=== PATIENT | female | born 1980 ===

== ENCOUNTER 2016-08-08 12:53 | Inpatient (IN) | payer OTHER ==
[2016-08-08 12:54] VITALS: BMI 20.9
[2016-08-08] MEDS ORDERED: Sodium Chloride 0.9% 1,000 ML IV STA ×2 (13:46→18:19)
[2016-08-08 14:15] LABS: MEAN CELL VOLUME 79.3 fl (81.0-99.0); MEAN CORPUSCULAR HEMOGLOBIN 24.2 pg (27.0-31.0); MEAN CORPUSCULAR HGB CONC 30.6 g/dL (33.0-37.0); RED CELL DISTRIBUTION WIDTH 19.3 % (11.5-14.5); WHITE BLOOD COUNT 23.3 K/uL (4.8-10.8)
[2016-08-08 14:25] LABS: ALB/GLOB RATIO 1.4 (1.0-2.1); ALKALINE PHOSPHATASE 48 U/L (38-126); ALT/SGPT 432 U/L (9-52); BILIRUBIN,TOTAL 0.7 mg/dl (0.2-1.3); BLOOD UREA NITROGEN 17 mg/dl (7-17); CALCIUM 9.2 mg/dL (8.4-10.2); CARBON DIOXIDE 24 mmol/L (22-30); CHLORIDE 101 mmol/L (98-107); GFR AFRICAN-AMERICAN > 60; GLUCOSE,RANDOM 100 mg/dL (65-105); POTASSIUM 4.1 MMOL/L (3.6-5.0); SODIUM 138 mmol/l (132-148)
[2016-08-08 14:48] LABS: AST/SGOT 1646 U/L (14-36)
[2016-08-08] MEDS ORDERED: Iohexol 240 (50 ml) PO ONE (14:59)
--- NOTE | 2016-08-08 15:02 | ED PDOC ---
HPI: General Adult Time Seen by Provider: 08/08/16 13:32 Chief Complaint (Nursing): Substance Abuse Chief Complaint (Provider): involuntary movement after taking 'trenton' History Per: Patient History/Exam Limitations: no limitations Onset/Duration Of Symptoms: Hrs (since noon yesterday) Have you had recent travel within the past 21 days to any of the following countries: [place], [place], [place] or [place]?: No Current Symptoms Are (Timing): Still Present Additional Complaint(s): Pt states she took trenton last approx 24 hours ago and has been experiencing involuntary body movement for the last 18 hours. PT states she has taken trenton in the past but has never felt this way. Pt denies anything else new. Denies abdominal pain, fever, chills. PT reports sore throat. Past Medical History Reviewed: Historical Data, Nursing Documentation, Vital Signs Vital Signs: Last Vital Signs Temp 99.9 F H 08/08/16 16:25 Pulse 113 H 08/08/16 16:36 Resp 16 08/08/16 16:36 BP 125/57 L 08/08/16 16:36 Pulse Ox 98 08/08/16 16:36 - Medical History PMH: No Chronic Diseases - Surgical History Surgical History: No Surg Hx - Family History Family History: States: Unknown Family Hx - Immunization History Hx Tetanus Toxoid Vaccination: No Hx Influenza Vaccination: No Hx Pneumococcal Vaccination: No - Home Medications Home Medications: Ambulatory Orders Medication Instructions Recorded No Known Home Med [No Known Home 10/28/14 Med] - Allergies Allergies/Adverse Reactions: Allergies Allergy/AdvReac Type Severity Reaction Status Date / Time shellfish derived Allergy RASH Verified 08/08/16 15:34 Physical Exam - Reviewed Nursing Documentation Reviewed: Yes Vital Signs Reviewed: Yes - Physical Exam Appears: Positive for: Well, Non-toxic, No Acute Distress Head Exam: Positive for: ATRAUMATIC, NORMAL INSPECTION, NORMOCEPHALIC Skin: Positive for: Normal Color, Warm, DRY Eye Exam: Positive for: EOMI, Normal appearance, PERRL ENT: Positive for: Normal ENT Inspection Neck: Positive for: Normal, Painless ROM Cardiovascular/Chest: Positive for: Regular Rate, Rhythm Respiratory: Positive for: CNT, Normal Breath Sounds Gastrointestinal/Abdominal: Positive for: Normal Exam, Bowel Sounds, Soft Back: Positive for: Normal Inspection Extremity: Positive for: Normal ROM Neurologic/Psych: Positive for: Alert, rn liaison II-XII, Oriented, Other ((+) involuntary spastic body movement ). Negative for: Gait (Unsteady) - Laboratory Results Result Diagrams: 08/08/16 14:04 08/08/16 14:04 - ECG O2 Sat by Pulse Oximetry: 100 Medical Decision Making Medical Decision Making: Pt remains tachycardic after ativan 1mg IV and IV fluids. Additional 1mg IV ordered and abdominal CT for elevated LFT. Pt under observation, telemetry. Discussed with dr. Ramos for admission. Disposition - Clinical Impression Clinical Impression: Tardive dyskinesia, Tachycardia, Drug abuse, Elevated transaminase level - Patient ED Disposition Is Patient to be Admitted: Yes - Disposition Disposition Time: 16:48 Condition: STABLE
[2016-08-08] MEDS ORDERED: Barium Sulfate for Susp 98% w/w 340g Bottle PO STA (15:31)
[2016-08-08] MEDS ORDERED: Barium Sulfate Susp 2.1% w/v, 2.0% w/w 450 mL Bottle PO STA ×3 (15:38→15:39)
[2016-08-08] MEDS ORDERED: Metoprolol 1 mg/ml Inj IVP ONE ×2 (16:17→16:22)
--- NOTE | 2016-08-08 16:24 | CP.PCM.HP ---
History of Present Illness - History of Present Illness History of Present Illness: Chief Complaint: Can't stop moving HPI: 36 year old female with no past medical history presents with about a 1 day history of constant moderate to severe moving and writhing of her whole body. This was not associated with any other symptoms. Patient took ecstasy three times, approx 48 hours ago, then 40 hours, then about 22 hours ago. Since the last time, she has not been able to stop moving and writhing. Poison control was called and recommended fluid hydration, sedation with ativan, and careful monitoring. Patient HR is approx 130, BP 125/57 RR comfortable sat 100% RA, ABG unremarkable. ROS: as per HPI, all other systems reviewed and negative by me PMH: none PSH: denies Family History: denies Social History: ecstasy, no tobacco, no ETOH Home Medications: none Allergies: NKDA, shellfish HR is approx 130, BP 125/57 sat 100% RA Constitutional- cooperative, awake, alert. uncontrolled movement, writhing. tardive dyskinesia. Head- NCAT, PERRL Eye- PERRL, normal accommodation ENT- normal exam, MMM. Neck- normal inspection, supple, no JVD Respiratory- CTAB, no wheezes rales rhonchi Cardiovascular- RRR, +S1, +S2 no MRG GI/Abdominal- normal bowel sounds, soft Extremities Exam- normal capillary refill, normal inspection Neurological Exam- alert, oriented Labs: 08/08/16 14:04 08/08/16 14:04 CK pending Elevated transaminases AST/ALT 1646/432 UTOX + CANNABINOIDS Assessment and Plan: 36 year old female with no past medical history presents with about a 1 day history of constant moderate to severe moving and writhing of her whole body. This was not associated with any other symptoms. Patient took ecstasy three times, approx 48 hours ago, then 40 hours, then about 22 hours ago. Since the last time, she has not been able to stop moving and writhing. Poison control was called and recommended fluid hydration, sedation with ativan, and careful monitoring. Patient HR is approx 130, BP 125/57 RR comfortable sat 100% RA, ABG unremarkable. Adverse Drug Reaction with Extrapyramidal Symptoms Tachycardia Elevated Transaminases Adverse Drug Reaction with Extrapyramidal Symptoms Patient took Swetha three times, has had sx since Poison control rec: fluids, ativan NS @ 250cc for 2 bags, then continue NS at 150cc/hr Ativan given in ER Cogentin 2mg po ordered, will monitor efficacy Ativan if sx persist Monitor closely Tachycardia IV lopressor given x1 in ER for 130 HR PRN Lopressor for HR >100, hold SBP <110 Elevated Transaminases AST/ALT 1646/[address] pending NS@ 250cc for now trend liver enzymes DVT ppx SCDs Present on Admission - Present on Admission Any Indicators Present on Admission: No Past Patient History - Past Social History Smoking Status: Never Smoked - PSYCHIATRIC Hx Substance Use: Yes (has taken Swetha once before) - SURGICAL HISTORY Hx Surgeries: No Meds Allergies/Adverse Reactions: Allergies Allergy/AdvReac Type Severity Reaction Status Date / Time shellfish derived Allergy RASH Verified 08/08/16 15:34 Results - Vital Signs Recent Vital Signs: Last Vital Signs Temp 100.3 F H 08/08/16 13:15 Pulse 146 H 08/08/16 13:15 Resp 20 08/08/16 13:15 BP 115/81 08/08/16 13:15 Pulse Ox 100 08/08/16 15:01 - Labs Result Diagrams: 08/08/16 14:04 08/08/16 14:04 Labs: Laboratory Results - last 24 hr 08/08/16 08/08/16 08/08/16 13:55 14:04 14:04 WBC 23.3 H RBC 4.53 Hgb 11.0 L Hct 36.0 MCV 79.3 L MCH 24.2 L MCHC 30.6 L RDW 19.3 H Plt Count 248 Sodium 138 Potassium 4.1 Chloride 101 Carbon Dioxide 24 Anion Gap 17 BUN 17 Creatinine 0.9 Est GFR ( Amer) > 60 Est GFR (Non-Af Amer) > 60 Random Glucose 100 Calcium 9.2 Total Bilirubin 0.7 AST 1646 H ALT 432 H Alkaline Phosphatase 48 Troponin I < 0.0120 Total Protein 8.0 Albumin 4.7 Globulin 3.3 Albumin/Globulin Ratio 1.4 Urine Opiates Screen Negative Urine Methadone Screen Negative Ur Barbiturates Screen Negative Ur Phencyclidine Scrn Negative Ur Amphetamines Screen Negative U Benzodiazepines Scrn Negative U Oth Cocaine Metabols Negative U Cannabinoids Screen Positive H
[2016-08-08 16:35] LABS: VENOUS BLOOD GAS BASE EXCESS -2.3 mmol/L (0.0-2.0); VENOUS BLOOD GAS PCO2 33 mmHg (40-60); VENOUS BLOOD PH 7.42 (7.32-7.43)
[2016-08-08] MEDS: Sodium Chloride 0.9% 1,000 ML IV SCH ×3 (17:07→23:59)
[2016-08-08 22:34] LABS: ALB/GLOB RATIO 1.3 (1.0-2.1); ALKALINE PHOSPHATASE 37 U/L (38-126); ALT/SGPT 394 U/L (9-52); BILIRUBIN,TOTAL 0.4 mg/dl (0.2-1.3); BLOOD UREA NITROGEN 10 mg/dl (7-17); CARBON DIOXIDE 18 mmol/L (22-30); CHLORIDE 109 mmol/L (98-107); GFR AFRICAN-AMERICAN > 60; GLUCOSE,RANDOM 74 mg/dL (65-105); SODIUM 137 mmol/l (132-148); TOTAL PROTEIN 6.4 G/DL (6.3-8.2)
[2016-08-08 23:19] LABS: AST/SGOT 1438 U/L (14-36)
[2016-08-09] MEDS: Sodium Chloride 0.9% 1,000 ML IV SCH ×3 (06:43→23:40)
[2016-08-09 06:54] LABS: BASO # 0.1 K/uL (0.0-0.2); BASO % 0.5 % (0.0-2.0); EOS # 0.1 K/uL (0.0-0.7); EOS % 0.8 % (0.0-4.0); HEMATOCRIT 29.7 % (34.0-47.0); LYMPH # 0.9 K/uL (1.0-4.3); LYMPH % 7.9 % (20.0-40.0); MEAN CELL VOLUME 80.8 fl (81.0-99.0); MEAN CORPUSCULAR HEMOGLOBIN 25.3 pg (27.0-31.0); MEAN CORPUSCULAR HGB CONC 31.3 g/dL (33.0-37.0); MEAN PLATELET VOLUME 9.6 fl (7.2-11.7); MONO # 0.8 K/uL (0.0-0.8); MONO % 7.1 % (0.0-10.0); NEUT # 9.1 K/uL (1.8-7.0); NEUT % 83.7 % (50.0-75.0); PLATELET COUNT 173 K/uL (130-400); RED CELL DISTRIBUTION WIDTH 19.1 % (11.5-14.5); WHITE BLOOD COUNT 10.9 K/uL (4.8-10.8)
[2016-08-09 07:04] LABS: ALKALINE PHOSPHATASE 60 U/L (38-126); ALT/SGPT 337 U/L (9-52); BILIRUBIN,TOTAL 0.3 mg/dl (0.2-1.3); BLOOD UREA NITROGEN 9 mg/dl (7-17); CALCIUM 7.6 mg/dL (8.4-10.2); CARBON DIOXIDE 18 mmol/L (22-30); CHLORIDE 110 mmol/L (98-107); GFR AFRICAN-AMERICAN > 60; GLUCOSE,RANDOM 67 mg/dL (65-105); POTASSIUM 3.7 MMOL/L (3.6-5.0); SODIUM 138 mmol/l (132-148); TOTAL PROTEIN 5.6 G/DL (6.3-8.2)
[2016-08-09 07:11] LABS: ALB/GLOB RATIO 1.2 (1.0-2.1); AST/SGOT 1239 U/L (14-36)
[2016-08-09] MEDS ORDERED: Sodium Chloride 0.9% 1,000 ML IV SCH (09:00)
--- NOTE | 2016-08-09 09:00 | CP.PCM.PN ---
Subjective - Date & Time of Evaluation Date of Evaluation: 08/09/16 Time of Evaluation: 09:00 - Subjective Subjective: PATIENT SEEN EXAMINED BEDSIDE. UNCONTROLLED WRITHING MOVEMENTS IMPROVED FROM YESTERDAY, NOT FULLY RESOLVED. FEELING BETTER. NO CHEST PAIN, NO SOB. NO OTHER COMPLAINTS. VITALS REVIEWED. NO ACUTE DISTRESS. Objective - Vital Signs/Intake and Output Vital Signs (last 24 hours): Temp Pulse Resp BP Pulse Ox 98.3 F 105 H 18 127/70 98 08/09/16 05:00 08/09/16 05:00 08/09/16 05:00 08/09/16 05:00 08/09/16 05:00 Constitutional- cooperative, awake, alert. uncontrolled movement, writhing. IMPROVING. Head- NCAT, PERRL Eye- PERRL, normal accommodation ENT- normal exam, MMM. Neck- normal inspection, supple, no JVD Respiratory- CTAB, no wheezes rales rhonchi Cardiovascular- RRR, +S1, +S2 no MRG GI/Abdominal- normal bowel sounds, soft Extremities Exam- normal capillary refill, normal inspection Neurological Exam- alert, oriented Intake and Output: 08/09/16 08/09/16 06:59 18:59 Intake Total 1350 Balance 1350 - Medications Medications: Current Medications Furosemide (Lasix) 40 mg IVP STAT STA Stop: 08/09/16 09:00 Sodium Chloride (Sodium Chloride 0.9%) 1,000 mls @ 999 mls/hr IV .Q1H1M KATHIE Stop: 08/09/16 10:00 Sodium Chloride (Sodium Chloride 0.9%) 1,000 mls @ 250 mls/hr IV .Q4H KATHIE Stop: 08/09/16 05:44 - Labs Labs: 08/09/16 05:40 08/09/16 05:40 PT 10.9 SECONDS (9.6-11.2) 08/09/16 05:40 INR 1.05 (0.92-1.08) 08/09/16 05:40 APTT 25.0 SECONDS (23.3-32.5) 08/09/16 05:40 Assessment and Plan - Assessment and Plan (Free Text) Plan: 36 year old female with no past medical history presents with about a 1 day history of constant moderate to severe moving and writhing of her whole body. This was not associated with any other symptoms. Patient took ecstasy three times, approx 48 hours ago, then 40 hours, then about 22 hours ago. Since the last time, she has not been able to stop moving and writhing. Poison control was called and recommended fluid hydration, sedation with ativan, and careful monitoring. Patient HR is approx 130, BP 125/57 RR comfortable sat 100% RA, ABG unremarkable. Adverse Drug Reaction with Extrapyramidal Symptoms Tachycardia Elevated Transaminases Rhabdomyolysis Adverse Drug Reaction with Extrapyramidal Symptoms Patient took Swetha three times, has had sx since Poison control rec: fluids, ativan NS @ 250cc for 2 bags, then continue NS at 150cc/hr Ativan given in ER Cogentin 2mg po ordered, will monitor efficacy Ativan if sx persist Monitor closely Rhabdomyolysis CK still 72K bolus additional liter of NS Continue NS @ 250cc / hr Lasix 40 IVP once today continue to monitor Repeat CK tomorrow Tachycardia IV lopressor given x1 in ER for 130 HR PRN Lopressor for HR >100, hold SBP <110 Elevated Transaminases AST/ALT 1646/[address] pending NS@ 250cc for now trend liver enzymes DVT ppx SCDs
[2016-08-09] MEDS ORDERED: Barium Sulfate Susp 2.1% w/v, 2.0% w/w 450 mL Bottle PO ONE ×5 (09:42→10:15)
[2016-08-09 10:26] LABS: BASOPHIL 1 % (0-2); EOSINOPHIL 1 % (0-7); NEUTROPHIL 85 % (42-75); TOTAL CELLS COUNTED 100
[2016-08-09 10:27] LABS: LARGE PLATELETS PRESENT
--- NOTE | 2016-08-09 10:58 | CARD ---
APPROVED REPORT EKG Measurement Heart [id number] MA [id number] [id number] <Conclusion> Sinus tachycardia Otherwise normal ECG
--- NOTE | 2016-08-09 13:00 | CT ---
PROCEDURE: CT HEAD WITHOUT CONTRAST. HISTORY: involuntary movement COMPARISON: None available. TECHNIQUE: Axial computed tomography images were obtained through the head/brain without intravenous contrast. Motion artifact slightly limits evaluation. Radiation dose: Total exam DLP = 1209.09 mGy-cm. This CT exam was performed using one or more of the following dose reduction techniques: Automated exposure control, adjustment of the mA and/or kV according to patient size, and/or use of iterative reconstruction technique. FINDINGS: HEMORRHAGE: No intracranial hemorrhage. BRAIN: No mass effect or edema. Hypodensity in the left subinsular region could be from old ischemic injury.No CT evidence of acute territorial infarct. VENTRICLES: Unremarkable. No hydrocephalus. CALVARIUM: Unremarkable. PARANASAL SINUSES: Unremarkable as visualized. No significant inflammatory changes. MASTOID AIR CELLS: Unremarkable as visualized. No inflammatory changes. OTHER FINDINGS: None. IMPRESSION: No CT evidence of acute intracranial hemorrhage or acute territorial infarct. Acute infarction may be CT occult within first 24 hours. If a focal deficit persists, consider followup CT or MRI for further evaluation. Other findings as above.
--- NOTE | 2016-08-09 13:44 | CT ---
PROCEDURE: CT Abdomen and Pelvis with oral contrast. HISTORY: n/v COMPARISON: None. TECHNIQUE: Contiguous axial images of the abdomen and pelvis. No IV contrast given. Coronal and Sagittal reformats generated. Please note that due to lack of intravenous contrast, evaluation of soft tissue structures and bowel is limited. Study further limited due to breathing motion and streak artifact from dense oral contrast within the small bowel. Radiation dose: Total exam DLP = 339.52 mGy-cm. This CT exam was performed using one or more of the following dose reduction techniques: Automated exposure control, adjustment of the mA and/or kV according to patient size, and/or use of iterative reconstruction technique. FINDINGS: LOWER THORAX: Unremarkable. LIVER: No gross lesions identified. GALLBLADDER AND BILE DUCTS: Unremarkable. PANCREAS: Suboptimally seen. SPLEEN: Unremarkable. No splenomegaly. ADRENALS: Suboptimally seen. KIDNEYS AND URETERS: No hydronephrosis. BLADDER: Grossly unremarkable. REPRODUCTIVE: Please note that evaluation of gynecologic organs is not optimal on CT imaging. Cervical region and the perineum is suboptimally seen. Further evaluation with ultrasound can be obtained if indicated. Postprocedure changes in both adnexa. Correlation with history recommended. APPENDIX: No CT evidence of acute appendicitis. BOWEL: Suboptimal evaluation of the bowel due to lack of intraperitoneal fat and extensive streak artifact from high density oral contrast. PERITONEUM: Small amount of fluid in the cul-de-sac. This could be physiologic. LYMPH NODES: No bulky lymphadenopathy seen. VASCULATURE: Suboptimally evaluated. BONES: No acute fracture noted. OTHER FINDINGS: None. IMPRESSION: No gross hepatic lesions identified on this noncontrast study. If indicated, ultrasound can be obtained. Correlation with hepatic enzymes recommended. Limited evaluation due to lack of intraperitoneal fat, and IV contrast. Dense oral contrast has lead to streak artifact which limits evaluation of the bowel in the surrounding structures. This was discussed with Dr. Ramos at approximately 1:45 p.m. on 08/09/2016.
[2016-08-09] MEDS: Benzocaine/Menthol (Cepacol) Lozenge PO PRN (20:09)
[2016-08-10] MEDS: Sodium Chloride 0.9% 1,000 ML IV SCH ×6 (03:52→17:12)
[2016-08-10 06:49] LABS: BASO % 0.6 % (0.0-2.0); EOS # 0.1 K/uL (0.0-0.7); EOS % 3.1 % (0.0-4.0); HEMATOCRIT 27.1 % (34.0-47.0); LYMPH # 0.7 K/uL (1.0-4.3); LYMPH % 16.1 % (20.0-40.0); MEAN CELL VOLUME 79.3 fl (81.0-99.0); MEAN CORPUSCULAR HEMOGLOBIN 25.2 pg (27.0-31.0); MEAN CORPUSCULAR HGB CONC 31.8 g/dL (33.0-37.0); MEAN PLATELET VOLUME 9.1 fl (7.2-11.7); MONO # 0.4 K/uL (0.0-0.8); MONO % 8.9 % (0.0-10.0); NEUT # 3.2 K/uL (1.8-7.0); NEUT % 71.3 % (50.0-75.0); RED CELL DISTRIBUTION WIDTH 19.2 % (11.5-14.5); WHITE BLOOD COUNT 4.5 K/uL (4.8-10.8)
[2016-08-10 06:54] LABS: ALB/GLOB RATIO 1.1 (1.0-2.1); ALKALINE PHOSPHATASE 28 U/L (38-126); ALT/SGPT 274 U/L (9-52); AST/SGOT 691 U/L (14-36); BILIRUBIN,TOTAL 0.2 mg/dl (0.2-1.3); BLOOD UREA NITROGEN 4 mg/dl (7-17); CALCIUM 7.3 mg/dL (8.4-10.2); CARBON DIOXIDE 22 mmol/L (22-30); CHLORIDE 111 mmol/L (98-107); GFR AFRICAN-AMERICAN > 60; GLUCOSE,RANDOM 78 mg/dL (65-105); POTASSIUM 3.1 MMOL/L (3.6-5.0); SODIUM 140 mmol/l (132-148); TOTAL PROTEIN 5.2 G/DL (6.3-8.2)
[2016-08-10] MEDS ORDERED: Potassium Chloride 20 mEq ER Tab PO ONE (08:25)
--- NOTE | 2016-08-10 10:10 | CP.PCM.PN ---
Subjective - Date & Time of Evaluation Date of Evaluation: 08/10/16 Time of Evaluation: 10:00 - Subjective Subjective: No fever abnormal muscle movements resolved denies CP no SOB no abd pain complains of pain lesions in her mouth good urine outpt- no hemturia Objective - Vital Signs/Intake and Output Vital Signs (last 24 hours): Temp Pulse Resp BP Pulse Ox 98.1 F 84 20 116/74 100 08/10/16 08:29 08/10/16 08:29 08/10/16 08:29 08/10/16 08:29 08/10/16 08:29 - Medications Medications: Current Medications Benzocaine/Menthol (Cepacol Sore Throat) 1 ender PO Q2 PRN PRN Reason: Sore Throat Last Admin: 08/09/16 20:09 Dose: 1 ender Sodium Chloride (Sodium Chloride 0.9%) 1,000 mls @ 250 mls/hr IV .Q4H KATHIE Stop: 08/10/16 18:22 Last Admin: 08/10/16 06:47 Dose: 250 mls/hr - Labs Labs: 08/10/16 05:55 08/10/16 05:55 PT 10.9 SECONDS (9.6-11.2) 08/09/16 05:40 INR 1.05 (0.92-1.08) 08/09/16 05:40 APTT 25.0 SECONDS (23.3-32.5) 08/09/16 05:40 - Constitutional Appears: No Acute Distress - Head Exam Head Exam: ATRAUMATIC, NORMAL INSPECTION, NORMOCEPHALIC - Eye Exam Eye Exam: EOMI, Normal appearance, PERRL Pupil Exam: NORMAL ACCOMODATION - ENT Exam ENT Exam: Mucous Membranes Moist, Normal External Ear Exam Additional comments: oral aphthous ulcers - Neck Exam Neck Exam: Full ROM. absent: Meningismus - Respiratory Exam Respiratory Exam: NORMAL BREATHING PATTERN. absent: Rales, Wheezes, Respiratory Distress - Cardiovascular Exam Cardiovascular Exam: REGULAR RHYTHM, +S1, +S2 - GI/Abdominal Exam GI & Abdominal Exam: Soft, Normal Bowel Sounds. absent: Tenderness - Extremities Exam Extremities Exam: Full ROM, Normal Capillary Refill. absent: Calf Tenderness, Pedal Edema - Back Exam Back Exam: Full ROM. absent: CVA tenderness (L), CVA tenderness (R) - Neurological Exam Neurological Exam: Alert, Awake, CN II-XII Intact, Oriented x3 Neuro motor strength exam: Left Upper Extremity: 5, Right Upper Extremity: 5, Left Lower Extremity: 5, Right Lower Extremity: 5 - Psychiatric Exam Psychiatric exam: Normal Affect, Normal Mood - Skin Skin Exam: Dry, Normal Color, Warm Assessment and Plan (1) Rhabdomyolysis Status: Acute (2) Drug abuse Status: Acute (3) Abnormal LFTs (liver function tests) Status: Acute (4) Psychomotor hyperactivity Status: Acute - Assessment and Plan (Free Text) Assessment: 36 y/o lady came because of abnormal involuntary movements after taking " Swetha/ Ecstacy". (1) Rhabdomyolysis likely due to Psychomotor hyperactivity due to intake of MDMA Status: Acute CPK 72K IVF hydration Poison control consulted cont to monitor electrolytes, renal fxn, LFTs and coags (2) Drug abuse Status: Acute Pt took MDMA, + also for Cannabis and drank ETOH counseled pt (3) Abnormal LFTs (liver function tests) likely sec to drug use Status: Acute GI consult: Dr Inman CT of abd : neg Hepatitis screen (4) Psychomotor hyperactivity Status: Acute now better pt received Ativan 5. Aphthous Ulcer, oral cavity Magic mouth wash q 6 gargle Pt states she had recent HIV test w/c was negative done by her MANAGER PAPER , refused rpt testing
[2016-08-10] MEDS: Mag&Al/Simet/Diphen/Lido 237 ML KIT BU SCH ×3 (14:52→22:17)
[2016-08-10] MEDS: Benzocaine/Menthol (Cepacol) Lozenge PO PRN (18:06)
[2016-08-10 19:42] LABS: HEMATOCRIT 28.4 % (34.0-47.0); MEAN CELL VOLUME 80.3 fl (81.0-99.0); MEAN CORPUSCULAR HEMOGLOBIN 24.9 pg (27.0-31.0); MEAN CORPUSCULAR HGB CONC 31.1 g/dL (33.0-37.0); RED CELL DISTRIBUTION WIDTH 18.6 % (11.5-14.5); WHITE BLOOD COUNT 4.8 K/uL (4.8-10.8)
[2016-08-10 20:06] LABS: ALB/GLOB RATIO 1.2 (1.0-2.1); ALKALINE PHOSPHATASE 31 U/L (38-126); ALT/SGPT 278 U/L (9-52); AST/SGOT 619 U/L (14-36); BILIRUBIN,TOTAL 0.3 mg/dl (0.2-1.3); BLOOD UREA NITROGEN 4 mg/dl (7-17); CALCIUM 7.8 mg/dL (8.4-10.2); CARBON DIOXIDE 25 mmol/L (22-30); CHLORIDE 105 mmol/L (98-107); GFR AFRICAN-AMERICAN > 60; GLUCOSE,RANDOM 101 mg/dL (65-105); POTASSIUM 3.4 MMOL/L (3.6-5.0); SODIUM 140 mmol/l (132-148)
[2016-08-11] MEDS: Sodium Chloride 0.9% 1,000 ML IV SCH (00:18)
[2016-08-11] MEDS: Mag&Al/Simet/Diphen/Lido 237 ML KIT BU SCH ×2 (04:11→10:31)
[2016-08-11 07:19] LABS: BASO % 0.8 % (0.0-2.0); EOS # 0.2 K/uL (0.0-0.7); EOS % 4.6 % (0.0-4.0); HEMATOCRIT 28.3 % (34.0-47.0); LYMPH # 0.7 K/uL (1.0-4.3); LYMPH % 20.4 % (20.0-40.0); MEAN CELL VOLUME 79.6 fl (81.0-99.0); MEAN CORPUSCULAR HEMOGLOBIN 25.5 pg (27.0-31.0); MEAN PLATELET VOLUME 9.8 fl (7.2-11.7); MONO # 0.3 K/uL (0.0-0.8); MONO % 8.2 % (0.0-10.0); NEUT # 2.3 K/uL (1.8-7.0); RED CELL DISTRIBUTION WIDTH 18.6 % (11.5-14.5); WHITE BLOOD COUNT 3.5 K/uL (4.8-10.8)
[2016-08-11 07:30] LABS: ALB/GLOB RATIO 1.2 (1.0-2.1); ALKALINE PHOSPHATASE 30 U/L (38-126); ALT/SGPT 233 U/L (9-52); AST/SGOT 368 U/L (14-36); BILIRUBIN,TOTAL 0.2 mg/dl (0.2-1.3); BLOOD UREA NITROGEN 3 mg/dl (7-17); CALCIUM 7.5 mg/dL (8.4-10.2); CARBON DIOXIDE 26 mmol/L (22-30); CHLORIDE 106 mmol/L (98-107); GFR AFRICAN-AMERICAN > 60; GLUCOSE,RANDOM 79 mg/dL (65-105); POTASSIUM 3.3 MMOL/L (3.6-5.0); SODIUM 140 mmol/l (132-148); TOTAL PROTEIN 5.5 G/DL (6.3-8.2)
[2016-08-11 08:11] VITALS: BP 121/76; PULSE 78; RESP 18; TEMP 98.8; O2SAT 100
[2016-08-11] MEDS ORDERED: Potassium Chloride 20 mEq/15 ml LIQ UD PO ONE (11:53)
--- NOTE | 2016-08-11 11:55 | CP.PCM.DIS ---
Provider - Provider Date of Admission: 08/09/16 17:08 Attending physician: Jessica Ramos DO Consults: gastroenterology consult Poison control Time Spent in preparation of Discharge (in minutes): 20 Hospital Course - Lab Results Lab Results: Most Recent Lab Values WBC 3.5 K/uL (4.8-10.8) L 08/11/16 06:10 RBC 3.56 Mil/uL (3.80-5.20) L 08/11/16 06:10 Hgb 9.1 g/dL (12.0-16.0) L 08/11/16 06:10 Hct 28.3 % (34.0-47.0) L 08/11/16 06:10 MCV 79.6 fl (81.0-99.0) L 08/11/16 06:10 MCH 25.5 pg (27.0-31.0) L 08/11/16 06:10 MCHC 32.0 g/dL (33.0-37.0) L 08/11/16 06:10 RDW 18.6 % (11.5-14.5) H 08/11/16 06:10 Plt Count 159 K/uL (130-400) 08/11/16 06:10 MPV 9.8 fl (7.2-11.7) 08/11/16 06:10 Neut % (Auto) 66.0 % (50.0-75.0) 08/11/16 06:10 Lymph % (Auto) 20.4 % (20.0-40.0) 08/11/16 06:10 [place] % (Auto) 8.2 % (0.0-10.0) 08/11/16 06:10 Eos % (Auto) 4.6 % (0.0-4.0) H 08/11/16 06:10 Baso % (Auto) 0.8 % (0.0-2.0) 08/11/16 06:10 Neut # 2.3 K/uL (1.8-7.0) 08/11/16 06:10 Lymph # 0.7 K/uL (1.0-4.3) L 08/11/16 06:10 [place] # 0.3 K/uL (0.0-0.8) 08/11/16 06:10 Eos # 0.2 K/uL (0.0-0.7) 08/11/16 06:10 Baso # 0.0 K/uL (0.0-0.2) 08/11/16 06:10 Neutrophils % (Manual) 85 % (42-75) H 08/09/16 05:40 Lymphocytes % (Manual) 9 % (20-50) L 08/09/16 05:40 Monocytes % (Manual) 4 % (0-10) 08/09/16 05:40 Eosinophils % (Manual) 1 % (0-7) 08/09/16 05:40 Basophils % (Manual) 1 % (0-2) 08/09/16 05:40 Platelet Estimate Normal (NORMAL) 08/09/16 05:40 Large Platelets Present 08/09/16 05:40 Hypochromasia (manual) Slight 08/09/16 05:40 Poikilocytosis (manual Slight 08/09/16 05:40 Anisocytosis (manual) Moderate 08/09/16 05:40 Tear Drop Cells Slight 08/09/16 05:40 Ovalocytes Slight 08/09/16 05:40 Schistocytes Slight 08/09/16 05:40 PT 11.2 SECONDS (9.6-11.2) 08/10/16 19:38 INR 1.08 (0.92-1.08) 08/10/16 19:38 APTT 23.0 SECONDS (23.3-32.5) L 08/10/16 19:38 pO2 51 mm/Hg (30-55) 08/08/16 16:32 VBG pH 7.42 (7.32-7.43) 08/08/16 16:32 VBG pCO2 33 mmHg (40-60) L 08/08/16 16:32 VBG HCO3 22.8 mmol/L 08/08/16 16:32 VBG Total CO2 22.4 mmol/L (22-28) 08/08/16 16:32 VBG O2 Sat (Calc) 90.3 % (40-65) H 08/08/16 16:32 VBG Base Excess -2.3 mmol/L (0.0-2.0) L 08/08/16 16:32 VBG Potassium 3.9 mmol/L (3.6-5.2) 08/08/16 16:32 Sodium 137.0 mmol/L (132-148) 08/08/16 16:32 Chloride 106.0 mmol/L (98-107) 08/08/16 16:32 Glucose 80 mg/dL (65-105) 08/08/16 16:32 Lactate 1.0 mmol/L (0.7-2.1) 08/08/16 16:32 FiO2 21.0 % 08/08/16 16:32 Sodium 140 mmol/l (132-148) 08/11/16 06:10 Potassium 3.3 MMOL/L (3.6-5.0) L 08/11/16 06:10 Chloride 106 mmol/L (98-107) 08/11/16 06:10 Carbon Dioxide 26 mmol/L (22-30) 08/11/16 06:10 Anion Gap 11 (10-20) 08/11/16 06:10 BUN 3 mg/dl (7-17) L 08/11/16 06:10 Creatinine 0.5 mg/dL (0.7-1.2) L 08/11/16 06:10 Est GFR ( Amer) > 60 08/11/16 06:10 Est GFR (Non-Af Amer) > 60 08/11/16 06:10 Random Glucose 79 mg/dL (65-105) 08/11/16 06:10 Calcium 7.5 mg/dL (8.4-10.2) L 08/11/16 06:10 Total Bilirubin 0.2 mg/dl (0.2-1.3) 08/11/16 06:10 AST 368 U/L (14-36) H D 08/11/16 06:10 ALT 233 U/L (9-52) H 08/11/16 06:10 Alkaline Phosphatase 30 U/L (38-126) L 08/11/16 06:10 Total Creatine Kinase 9831 U/L (30-135) H 08/11/16 06:10 Troponin I < 0.0120 ng/mL (0.00-0.120) 08/08/16 14:04 Total Protein 5.5 G/DL (6.3-8.2) L 08/11/16 06:10 Albumin 3.0 g/dL (3.5-5.0) L 08/11/16 06:10 Globulin 2.5 gm/dL (2.2-3.9) 08/11/16 06:10 Albumin/Globulin Ratio 1.2 (1.0-2.1) 08/11/16 06:10 Venous Blood Potassium 3.9 mmol/L (3.6-5.2) 08/08/16 16:32 Urine Opiates Screen Negative (NEGATIVE) 08/08/16 13:55 Urine Methadone Screen Negative (NEGATIVE) 08/08/16 13:55 Ur Barbiturates Screen Negative (NEGATIVE) 08/08/16 13:55 Ur Phencyclidine Scrn Negative (NEGATIVE) 08/08/16 13:55 Ur Amphetamines Screen Negative (NEGATIVE) 08/08/16 13:55 U Benzodiazepines Scrn Negative (NEGATIVE) 08/08/16 13:55 U Oth Cocaine Metabols Negative (NEGATIVE) 08/08/16 13:55 U Cannabinoids Screen Positive (NEGATIVE) H 08/08/16 13:55 Infectious [place] Assay Negative (NEGATIVE) 08/08/16 16:31 Grp A Beta Strep Ag Negative (NEGATIVE) 08/08/16 16:29 - Hospital Course Hospital Course: 36 year old female past medical history of chronic iron deficiency 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 This was not associated with any other symptoms. Patient took ecstasy three times, approx 48 hours ago, then 40 hours, then about 22 hours ago. Since the last time, she has not been able to stop moving and writhing. Poison control was called and recommended fluid hydration, sedation with ativan, and careful monitoring. Patient HR is approx 130, BP 125/57 RR comfortable sat 100% RA, Her lab tests showed CPK elevation 25401 and elevated LFT-s .AST/ALT 1646/432 She was admitted in telemetry and started on aggressive hydration. Clinically patient improved. At present hemodynamically stable, afebrile with no abnormal muscle twitching or movement, no psychosis , denies depression or any suicidal ideation. Patient wants to go home Her lab tests showed improvemnet , CPK trended down to 9831, renal function normal with no hematuria, LFT-s trendd down to AST/ALT 368/233 Counselled patient on drug abuse .Will discharge patient home. Advise to follow up with [facility] in 1 week to repeat LFT-s Avoid ETOH (1) Rhabdomyolysis likely due to Psychomotor hyperactivity due to intake of MDMA Acute CPK 72K Received IVF hydration Poison control consulted CPK now 9800, renal function normal Will discharge home (2) Drug abuse Acute Pt took MDMA, + also for Cannabis and drank ETOH counseled pt (3) Abnormal LFTs (liver function tests) likely sec to drug use Acute GI consult: Dr Inman CT of abd : neg LFT-s improving Counselled on drug abuse D/c jojo,e Follow up with [facility] in 1 week (4) Psychomotor hyperactivity Status: Acute resolved pt received Ativan 5. Aphthous Ulcer, oral cavity Magic mouth wash q 6 gargle Pt states she had recent HIV test w/c was negative done by her [facility] , refused rpt testing 6. Chronic iron deficiency Anemia secondary to menorrhagia continue ferrous sulfate Po follow up with her OB . OCP on hold for now 7. Hypokalemia repleted Discharge Exam - Head Exam Head Exam: ATRAUMATIC, NORMAL INSPECTION, NORMOCEPHALIC - Eye Exam Eye Exam: EOMI, Normal appearance, PERRL Pupil Exam: NORMAL ACCOMODATION - ENT Exam ENT Exam: Mucous Membranes Moist, Normal Exam - Neck Exam Neck exam: Full Rom, Normal Inspection - Respiratory Exam Respiratory Exam: Clear to PA & Lateral, NORMAL BREATHING PATTERN. absent: Rales, Rhonchi, Wheezes - Cardiovascular Exam Cardiovascular Exam: REGULAR RHYTHM, RRR, +S1, +S2. absent: JVD - GI/Abdominal Exam GI & Abdominal Exam: Normal Bowel Sounds, Soft. absent: Distended, Guarding, Rebound, Tenderness - Rectal Exam Rectal Exam: Deferred - Extremities Exam Extremities exam: normal capillary refill, normal inspection, pedal pulses present - Back Exam Back exam: NORMAL INSPECTION - Neurological Exam Neurological exam: Alert, CN II-XII Intact, Oriented x3, Reflexes Normal - Psychiatric Exam Psychiatric exam: Normal Affect, Normal Mood - Skin Skin Exam: Dry, Intact, Normal Color, Warm Discharge Plan - Follow Up Plan Condition: STABLE Disposition: HOME/ ROUTINE Patient education suggested?: Yes Instructions: Rhabdomyolysis (DC), Cannabis Abuse (DC)
--- NOTE | 2016-08-11 21:49 | CON ---
DATE: 08/10/2016 REFERRING PHYSICIAN: Dr. Gómez. REASON FOR CONSULTATION: Elevated LFTs. HISTORY OF PRESENT ILLNESS: This is a 36-year-old female, essentially comes in for some sort of twit morena after taking some ecstasy and some mollies. GI is called elevation of the LFT. The patient i s at this point, lying in bed, comfortable, in no apparent distress. PAST MEDICAL HISTORY: As above. PAST SURGICAL HISTORY: As above. MEDICATIONS: Have been reviewed. REVIEW OF SYSTEMS: All other systems have been reviewed and negative apart in HPI. PHYSICAL EXAMINATION: VITAL SIGNS: Here in the hospital are grossly unremarkable. GENERAL: This is a pleasant young middle-aged female lying in bed, comfortable, in no apparent distr ess. HEAD: Normocephalic, atraumatic. EYES: Pupils equally reactive to light bilaterally. No conjunctival pallor or icterus. NECK: Supple, normal range of motion. No lymphadenopathy appreciated. LUNGS: Coarse breath sounds bilaterally. HEART: S1, S2. Regular rate and rhythm. No murmurs appreciated. ABDOMEN: Soft, nontender. Bowel sounds present. RECTAL: Deferred. EXTREMITIES: Pulses present bilaterally. SKIN: Warm, dry and intact. NEUROLOGIC: Alert and oriented x 3. LABORATORY DATA: Have been reviewed. WBC is currently 4.8, hemoglobin of 8.8, hematocrit 28.4, plat elet count 156. INR 1.08. CPK was 72,000, trending down to 15,000 now. AST, ALT were initially 14, 38, and 394 with an alkaline phosphatase of 37 and bilirubin which was normal and currently they are 619 and 270 with an alkaline phosphatase of 31. ASSESSMENT AND PLAN: This is a 36-year-old female essentially taking recreational drugs and elevatio n of LFTs and possibly some rhabdo. From a GI standpoint, trend LFTs, aggressive hydration. Hepatit is A, B, C panel pending. Otherwise, stop recreational drug use. We will follow the patient with yo u. Thank you for the consultation. Clarence Inman MD, PhD cc:Marquita Gómez MD [id number] TT: 08/11/2016 21:48:22 Confirmation # [id number] Dictation # [id number] an
== END 2016-08-11 12:53 | disposition home or self-care (01) | DRG 92 ==
LOC: H.ER 12:53 → H.ERHOLD 16:26 → H.TEL 22:49 → OBSVTOIN 08-09 17:08 → H.MEDSURG1 08-10 22:39
PROVIDERS: ADMIT Student in an Organized Health Care Education/Training Program; ATTEND Student in an Organized Health Care Education/Training Program
DX: G24.01 Drug induced subacute dyskinesia (principal); M62.82 Rhabdomyolysis; T43.625A Adverse effect of amphetamines, initial encounter; E87.6 Hypokalemia; D50.0 Iron deficiency anemia secondary to blood loss (chronic); F12.10 Cannabis abuse, uncomplicated; F90.9 Attention-deficit hyperactivity disorder, unspecified type; K12.0 Recurrent oral aphthae; N92.0 Excessive and frequent menstruation with regular cycle; R00.0 Tachycardia, unspecified; R74.0 Nonspecific elevation of levels of transaminase and lactic acid dehydrogenase [LDH]; Z91.013 Allergy to seafood; Y92.9 Unspecified place or not applicable